=== PATIENT | female | born 1985 | race Caucasian/White ===

== ENCOUNTER 2024-05-23 23:26 | Emergency (ER) | payer MEDICAID ==
[~2024-05-23] VITALS: Ht 149.9 cm; Wt 90.9 kg
[~2024-05-23 23:26] MED LIST: CEPH-585 PO; LORA10TA65 PO
[2024-05-23 23:28] VITALS: BP 171/127; PULSE 112; RESP 18; TEMP 98; O2SAT 98
== END 2024-05-23 23:50 ==
LOC: ER 23:27
DX: Z02.89 Encounter for other administrative examinations (principal); E10.9 Type 1 diabetes mellitus without complications; J45.909 Unspecified asthma, uncomplicated
CPT/HCPCS: 99283

== ENCOUNTER 2024-06-02 17:36 | Emergency (ER) | payer MEDICAID ==
[~2024-06-02] VITALS: Ht 149.9 cm; Wt 76.7 kg
[2024-06-02] MEDS ORDERED: AMOX-580 PO (17:56)
[2024-06-02] MEDS ORDERED: IBUP-1986 PO (17:56)
[2024-06-02] MEDS: ibuprofen tablet 400 MG TABLET PO ONE (18:09)
[2024-06-02] MEDS: amox tr/potassium clavulanate 875/125mg TAB PO ONE (18:09)
[2024-06-02 18:12] VITALS: BP 142/86; PULSE 82; RESP 16; TEMP 98.4; O2SAT 97
== END 2024-06-02 18:13 | disposition home or self-care (01) ==
LOC: ER 17:37
DX: K08.89 Other specified disorders of teeth and supporting structures (principal)
CPT/HCPCS: 99283

== ENCOUNTER 2024-10-11 18:58 | Emergency (ER) | payer MEDICAID ==
[~2024-10-11] VITALS: Ht 149.9 cm; Wt 72.7 kg
[~2024-10-11 18:58] MED LIST changes: +IBUP-1986 PO
[2024-10-11 19:27] VITALS: BP 121/74; PULSE 98; RESP 14; TEMP 97.7; O2SAT 98
== END 2024-10-11 23:13 | disposition left against medical advice (07) ==
LOC: ER 18:59
DX: M25.432 Effusion, left wrist (principal); Z53.21 Procedure and treatment not carried out due to patient leaving prior to being seen by health care provider